=== PATIENT | female | born 1965 | race Two or more races ===

== ENCOUNTER 2018-09-10 08:40 | Outpatient (CLI) | payer BC | END 2018-09-10 23:59 | disposition home or self-care (01) | LOC: WOU 08:40 | PROVIDERS: ATTEND Specialist | DX: T81.41XD Infection following a procedure, superficial incisional surgical site, subsequent encounter (principal); E11.628 Type 2 diabetes mellitus with other skin complications; Z79.84 Long term (current) use of oral hypoglycemic drugs; I10 Essential (primary) hypertension | CPT/HCPCS: 99205; A6402; Z7610; G0463 ==